=== PATIENT | female | born 1990 | race Caucasian/White ===

== ENCOUNTER → 2016-07-12 | Outpatient (CLI) | payer MEDICAID | LOC: HPND 12:51 | DX: O09.212 Supervision of pregnancy with history of pre-term labor, second trimester (principal); O09.292 Supervision of pregnancy with other poor reproductive or obstetric history, second trimester; O44.02 Complete placenta previa NOS or without hemorrhage, second trimester | CPT/HCPCS: 76811; 76817 ==

== ENCOUNTER → 2016-08-18 | Outpatient (CLI) | payer MEDICAID | LOC: HPND 13:03 | DX: O09.292 Supervision of pregnancy with other poor reproductive or obstetric history, second trimester (principal) | CPT/HCPCS: 76816 ==